=== PATIENT | female | born 1945 | race Two or more races ===

== ENCOUNTER 2022-05-03 14:08 | Inpatient (IN) | payer MEDICARE, MEDICAID ==
[~2022-05-03] VITALS: Ht 144.8 cm; Wt 64.4 kg
[2022-05-03] MEDS: ATORVASTATIN 10 MG TABLET PO SCH (01:30)
[2022-05-03] MEDS ORDERED: IV NS 0.9% 1,000 ML IV ONE (15:00)
--- NOTE | 2022-05-03 15:00 | NUR ---
REceived pt 76 yrs female came from home c/o by family py no voding 3 day awake and confused not fallow command rresting at this time
--- NOTE | 2022-05-03 15:05 | NUR ---
INserted ango catheter G 22 on RT wrist unable to drow blood for lab
--- NOTE | 2022-05-03 15:10 | NUR ---
Inserted FC FR 16 NO DIFFECULTY URINE OUT put 300ml cloudy yellow color UA sent to lab
--- NOTE | 2022-05-03 15:49 | NUR ---
RIGGER HELPER CELIA SON # [phone]
--- NOTE | 2022-05-03 16:10 | NUR ---
TO CT SCAN VIA WNEDY
[2022-05-03 17:05] LABS: BILIRUBIN,URINE NEGATIVE (NEGATIVE); COLOR,URINE YELLOW (YELLOW); LEUKOCYTE ESTERASE ,URINE 2+ (NEGATIVE); NITRITE, URINE NEGATIVE (NEGATIVE); PROTEIN,URINE NEGATIVE (NEGATIVE); UGLUCOSE NEGATIVE (NEGATIVE); UROBILINOGEN,URINE 0.2 EU/dL (0.2)
--- NOTE | 2022-05-03 17:14 | NUR ---
VITAL SIGNS UPDATED.
[2022-05-03] MEDS ORDERED: CEPH500C2 PO (17:59)
[2022-05-03] MEDS ORDERED: IBUP-1955 PO (17:59)
[2022-05-03 18:01] LABS: BASOPHILS # (AUTO) 0.1 K/uL (0.0-0.2); BASOPHILS % (AUTO) 0.5 % (0.0-2.0); EOSINOPHILS % (AUTO) 9.2 % (0.0-6.0); HEMATOCRIT 30 % (33-45); HEMOGLOBIN 9.8 g/dL (11.5-14.8); LYMPHOCYTES # (AUTO) 4.3 K/uL (0.8-4.8); MEAN CORPUSCULAR HGB CONC 32 g/dl (31.0-36.0); MEAN CORPUSCULAR VOLUME 90 fL (82-100); MONOCYTES # (AUTO) 0.9 K/uL (0.1-1.30); NEUTROPHILS # (AUTO) 5.1 K/uL (1.8-8.9); NEUTROPHILS % (AUTO) 44.3 % (43.0-81.0); PLATELET COUNT (AUTO) 294 K/uL (150-450); RED BLOOD CELL COUNT(AUTO) 3.39 MIL/uL (4.0-5.2); WHITE BLOOD COUNT (AUTO) 11.4 K/uL (4.3-11.0)
[2022-05-03 18:05] LABS: BACTERIA,URINE 3+ /HPF (None Seen); RBC,URINE 0-2 /HPF (0-2); SQUAMOUS EPITHELIAL CELL,UR 0-2 /HPF (None Seen); WBC,URINE 21-50 /HPF (0-3)
--- NOTE | 2022-05-03 18:14 | NUR ---
BLOOD drow by lab tach at bed side
[2022-05-03 18:23] LABS: ALANINE AMINOTRANSFERASE 15 U/L (12-78); ALBUMIN 2.5 g/dL (3.4-5.0); ALKALINE PHOSPHATASE 72 U/L (46-116); ASPARTATE AMINOTRANSFERASE 16 U/L (15-37); BILIRUBIN,DIRECT 0.1 mg/dL (0.0-0.2); BILIRUBIN,TOTAL 0.5 mg/dL (0.2-1.0); CALCIUM, SERUM 9.3 mg/dL (8.5-10.1); CARBON DIOXIDE 23 mmol/L (21-32); CHLORIDE 103 mmol/L (98-107); GLUCOSE 95 mg/dL (74-106); LIPASE 163 U/L (73-393); POTASSIUM 4.7 mmol/L (3.5-5.1); SODIUM SERUM 136 mmol/L (136-145); UREA NITROGEN, BLOOD 63 mg/dL (7-18)
[2022-05-03] MEDS ORDERED: MORPHINE SULFATE INJ 2 MG/ML DISP.SYRIN IV ONE (19:00)
[2022-05-03] MEDS ORDERED: CEFTRIAXONE 1 G in IV D5W 50 ML IV ONE (19:00)
[2022-05-03] MEDS ORDERED: ONDANSETRON HCL/PF 4 MG/2 ML VIAL IV ONE (19:00)
[2022-05-03] MEDS ORDERED: CEFTRIAXONE 1GM BAG (ER ONLY) 50 ML IV ONE (19:05)
[2022-05-03] MEDS ORDERED: ONDANSETRON HCL/PF 4 MG/2 ML VIAL ONE (19:05)
[2022-05-03] MEDS ORDERED: MORPHINE SULFATE INJ 4 MG/ML DISP.SYRIN ONE (19:06)
--- NOTE | 2022-05-03 19:19 | NUR ---
HAND OFF JJ DELACRUZ
--- NOTE | 2022-05-03 19:29 | NUR ---
covid swab collected
[2022-05-03] MEDS ORDERED: ONDANSETRON HCL/PF 4 MG/2 ML VIAL IVP PRN (22:30)
[2022-05-04] MEDS ORDERED: CEFTRIAXONE 1GM BAG (ER ONLY) 50 ML IV ONE (01:17)
[2022-05-04] MEDS ORDERED: ENOXAPARIN SODIUM 30 MG/0.3 ML DISP.SYRIN ONE (01:17)
[2022-05-04] MEDS ORDERED: ATORVASTATIN 10 MG TABLET ONE (01:17)
[2022-05-04] MEDS: ENOXAPARIN SODIUM 30 MG/0.3 ML DISP.SYRIN SQ SCH ×2 (01:36→21:02)
[2022-05-04] MEDS: IV NS 0.9% 1,000 ML IV PRN (01:39)
[2022-05-04 05:44] LABS: BASOPHILS # (AUTO) 0.1 K/uL (0.0-0.2); BASOPHILS % (AUTO) 0.5 % (0.0-2.0); EOSINOPHILS % (AUTO) 11.6 % (0.0-6.0); HEMATOCRIT 30 % (33-45); HEMOGLOBIN 9.7 g/dL (11.5-14.8); LYMPHOCYTES # (AUTO) 3.6 K/uL (0.8-4.8); LYMPHOCYTES % (AUTO) 35.5 % (20.0-44.0); MEAN CORPUSCULAR HGB CONC 32 g/dl (31.0-36.0); MEAN CORPUSCULAR VOLUME 90 fL (82-100); MONOCYTES # (AUTO) 0.7 K/uL (0.1-1.30); MONOCYTES % (AUTO) 7.2 % (2.0-12.0); NEUTROPHILS # (AUTO) 4.5 K/uL (1.8-8.9); NEUTROPHILS % (AUTO) 45.2 % (43.0-81.0); PLATELET COUNT (AUTO) 298 K/uL (150-450); RED BLOOD CELL COUNT(AUTO) 3.36 MIL/uL (4.0-5.2); WHITE BLOOD COUNT (AUTO) 10.1 K/uL (4.3-11.0)
[2022-05-04 05:51] LABS: HDL CHOLESTEROL 48 mg/dL (40-60); LDL 84 mg/dL (0-99); TRIGLYCERIDES 153 mg/dL (30-150)
[2022-05-04 05:55] LABS: CALCIUM, SERUM 9.4 mg/dL (8.5-10.1); CARBON DIOXIDE 26 mmol/L (21-32); CHLORIDE 102 mmol/L (98-107); CREATININE 1.8 mg/dL (0.6-1.3); GLUCOSE 95 mg/dL (74-106); PHOSPHORUS 4.3 mg/dL (2.5-4.9); POTASSIUM 3.9 mmol/L (3.5-5.1); SODIUM SERUM 136 mmol/L (136-145); UREA NITROGEN, BLOOD 64 mg/dL (7-18)
[2022-05-04 06:19] LABS: CHOLESTEROL 155 mg/dL (<200)
[2022-05-04 07:00] VITALS: BP 109/28
--- NOTE | 2022-05-04 07:10 | NUR ---
Received pt from LYNN DELACRUZ PT AWAKE ASLEEPY RUDOLPH WHEN CALL NAME
--- NOTE | 2022-05-04 07:15 | NUR ---
Received from LYNN DELACRUZ PT AWAKE and fallow command respiration spon and eassy
--- NOTE | 2022-05-04 08:00 | NUR ---
HAND OFF DANIA DELACRUZ TO ROOM 311-1 VIA WENDY
--- NOTE | 2022-05-04 09:03 | NUR ---
CRUISE AGENT/MED RECON UNABLE TO UPDATE HOME MEDICATION INFORMATION AT THIS TIME. PER SONCELIA TO CALL KENROY FROM [facility] [phone]. SPOKE WITH KENROY AND WILL FAX INFORMATION LATER. FAX # PROVIDED.
--- NOTE | 2022-05-04 09:10 | NUR ---
RN Acepting Report. Patient arrived to unit safely. All safety precautions taken. Patient speaks Jordanian. Able to confirm name and date of . Patient aware of hospital stay. AOx4. Called son to get some information from him Kg arthur. [phone]. Patient stable, no signs of distress or discomfort. Will continue to monitor through shift.
--- NOTE | 2022-05-04 09:15 | NUR ---
wheeled patient via gurney accompanied by RN and emet in no distress. RN assigned at bedside to assume care.
[2022-05-04 09:30] VITALS: BP 109/28
[2022-05-04] MEDS: ASPIRIN 81 MG TAB.CHEW PO SCH (09:53)
[2022-05-04] MEDS ORDERED: SENN-133 PO (12:48)
[2022-05-04] MEDS ORDERED: IPRA3AMP23 IH (12:48)
[2022-05-04] MEDS ORDERED: LORA2ORA SL (12:48)
[2022-05-04] MEDS ORDERED: ONDA4TAB11 SL (12:48)
[2022-05-04] MEDS ORDERED: PETR113O TP (12:48)
[2022-05-04] MEDS ORDERED: MUPI22OI7 TD (12:48)
[2022-05-04] MEDS ORDERED: ALLA266C2 TP (12:48)
[2022-05-04] MEDS ORDERED: ATOR40TA PO (12:48)
[2022-05-04] MEDS ORDERED: BISA10SU11 RC (12:48)
[2022-05-04] MEDS ORDERED: HYDR-500 PO (12:48)
[2022-05-04] MEDS ORDERED: POTA10TA10 PO (12:48)
[2022-05-04] MEDS ORDERED: ACET650S11 RC (12:48)
[2022-05-04] MEDS ORDERED: ATRO3.5O3 SL (12:48)
[2022-05-04] MEDS ORDERED: MORP20SO SL (12:48)
[2022-05-04] MEDS ORDERED: SODI1TAB66 PO (12:48)
[2022-05-04] MEDS ORDERED: NIFE-34 PO (12:48)
[2022-05-04] MEDS ORDERED: LOSA100T31 PO (12:48)
[2022-05-04] MEDS ORDERED: FURO40TA5 PO (12:48)
[2022-05-04] MEDS ORDERED: LEVO25TA76 PO (12:48)
[2022-05-04] MEDS ORDERED: MEGE40TA5 PO (12:48)
[2022-05-04] MEDS ORDERED: SOTA80TA PO (12:48)
[2022-05-04] MEDS ORDERED: OXYC5TAB3 PO (12:48)
[2022-05-04] MEDS ORDERED: FAMO20TA8 PO (12:48)
[2022-05-04] MEDS ORDERED: DICL100G34 TD (12:48)
[2022-05-04] MEDS ORDERED: APIX5TAB PO (12:48)
[2022-05-04] MEDS ORDERED: HYDR-4077 PO (12:48)
--- NOTE | 2022-05-04 13:39 | NUR ---
WEB SERVICES PROFESSIONAL/MED RECON HOME MEDICATION INFORMATION UPDATED, INFO OBTAINED FROM HOSPICE, PER SON-CELIA REQUESTED. FELISA NAZARIO MADE AWARE TO REVIEW.
[2022-05-04] MEDS: Z GUARD REMEDY 4 OZ OINT TP SCH ×2 (14:00→21:06)
[2022-05-04] MEDS: CEFTRIAXONE 1 G in IV D5W 50 ML IV SCH (17:50)
[2022-05-04] MEDS ORDERED: PERMETHRIN 5% CRM 60 GM TUBE TP ONE (19:00)
--- NOTE | 2022-05-04 19:07 | NUR ---
RN Closing Note Patient AOx3-4, speaks Nicaraguan. Patient with no signs of distress or discomfort. Complains of pain only when moved. Patient remained safe through shift, medications administered as ordered and care provided as needed. Son was able to provide limited medical history. All safety precautions taken, call light and table within reach, bed at lowest position.
[2022-05-04 20:00] VITALS: BP 114/96
--- NOTE | 2022-05-04 21:04 | NUR ---
ANTICOAGULANT H/H 9.7 Plt 298 No active bleeding. Given Lovenox injection, co-signed by Vandana Brito.
--- NOTE | 2022-05-04 21:16 | NUR ---
TREAMENT ELIMITE CREAM Elimite cream applied from head to sole of the feet, leave it on. Will remove cream after 8 to 14 hours as per medication instruction.
[2022-05-04] MEDS: ATORVASTATIN 10 MG TABLET PO SCH (21:29)
--- NOTE | 2022-05-04 21:30 | NUR ---
MEDICATION NON ADMINISTERED Patient confused, spit out medication, unable to educate at this time.
--- NOTE | 2022-05-04 22:09 | NUR ---
AGITATION Patient screaming loud, confused, agitated. Pulled out IV line am shift per report. Notified SYRUP MIXER Arvin with new order Ativan 1mg IV x1.
[2022-05-04] MEDS ORDERED: LORAZEPAM INJ 2 MG/ML VIAL IV ONE (22:30)
--- NOTE | 2022-05-04 22:43 | NUR ---
SEVERE AGITATION Patient screaming loud, agitated behavior uncontrolled. Given IV Ativan, will reassess. Fall precaution maintained.
[2022-05-05] VITALS: BP 136/54
--- NOTE | 2022-05-05 02:59 | NUR ---
WRIST RESTRAINT Patient stopped with screaming behavior, agitation improved slowly with IV Ativan. Restless when awake, attempted to pull out IV line and henry cath. Notified Mangle Tender Arvin with new order Soft wrist restraint. Will monitor skin and circulation while on restraint.
[2022-05-05 04:00] VITALS: BP 130/65
[2022-05-05] MEDS: IV NS 0.9% 1,000 ML IV PRN ×2 (05:37→17:18)
--- NOTE | 2022-05-05 06:23 | NUR ---
END OF SHIFT REPORT Patient in bed, confused, restless at times. Right wrist restraints in place, CSM intact in RUE. V Pacing in the Tele monitor HR 62. IV line right arm intact, IVF infusing. On IV abx. Afebrile throughout shift. Montgomery cath draining to gravity, output 550ml urine clear, yellow. Elimite cream removed/ washed this morning. Turned and repositioned. Wound consult. Will endorse to oncoming RN.
[2022-05-05 07:00] VITALS: BP 104/62
--- NOTE | 2022-05-05 07:00 | NUR ---
BLANKET CUTTING MACHINE OPERATOR OPENING NOTES: RECEIVED PT IN BED ASLEEP, EASILY AROUSED WITH STIMULI. A/O X 1, CONFUSED, NEEDS FREQUENT REORIENTATION. NO SOB OR CARDIAC DISTRESS NOTED. ON TELE MONITOR ATTACHED WITH CURRENT READING : V PACING @63 BPM. IV ACCESS ON RFA GAUGE 22 PATENT, INTACT AND INFUSING IV FLUIDS NS 1L @ 75ML/HR. NOTED WITH RIGHT SOFT WRIST RESTRAIN, PT ABLE TO MOVE HER R HAND FREELY. SAFETY PRECAUTIONS MAINTAINED: BED LOCKED AND IN LOWEST POSITION, BED ALARM ON. SIDE RAILS UP X 3 . CALL LIGHT IN EASY REACH FOR HELP.
[2022-05-05] MEDS ORDERED: ALBUTEROL FS 2.5 MG/3 ML VIAL.NEB NEB PRN (08:30)
[2022-05-05] MEDS ORDERED: HOME MED MISCELLANEOUS XX SCH (08:30)
[2022-05-05] MEDS ORDERED: BISACODYL SUPP (10 MG) 10 MG/SUPP.RECT SUPP.RECT RC PRN (08:30)
[2022-05-05] MEDS ORDERED: hydrOXYzine HCL SYRUP 10 MG/5 ML UDC PO PRN (08:30)
[2022-05-05] MEDS ORDERED: DICLOFENAC TOPICAL 100 GM GEL..GM. TP PRN (08:30)
[2022-05-05] MEDS: ASPIRIN 81 MG TAB.CHEW PO SCH (08:54)
[2022-05-05] MEDS: SENNOSIDES/DOCUSATE SODIUM 1 TAB TABLET PO SCH (09:00)
[2022-05-05] MEDS: hydrALAZINE HCL 50 MG TABLET PO SCH ×2 (09:00→17:00)
[2022-05-05] MEDS: NIFEdipine XL (30MG) 30 MG TAB PO SCH (09:00)
[2022-05-05] MEDS: LOSARTAN POTASSIUM 50 MG TABLET PO SCH (09:00)
[2022-05-05] MEDS ORDERED: hydrOXYzine PAMOATE 25 MG CAPSULE PO PRN (09:00)
[2022-05-05] MEDS: ATORVASTATIN 40 MG TABLET PO SCH (09:00)
[2022-05-05] MEDS: Z GUARD REMEDY 4 OZ OINT TP SCH ×2 (09:01→20:55)
[2022-05-05] MEDS: FAMOTIDINE (20 MG) 20 MG TABLET PO SCH (09:01)
[2022-05-05] MEDS: APIXABAN 5 MG TABLET PO SCH ×2 (09:09→17:20)
[2022-05-05] MEDS: MEGESTROL ACETATE 40 MG TABLET PO SCH (09:14)
--- NOTE | 2022-05-05 09:25 | NUR ---
WOUND CARE CONSULT: PT PRESENTS WITH RASH/SKIN CONDITION WITH MULTIPLE SMALL DRY SCABS WELL SACRAL STAGE 3 PRESSURE ULCER, PRESENT ON ADMISSION. RECOMMENDATIONS MADE FOR SKIN PROTECTION. DISCUSSED WITH NURSING STAFF. MARCOS MCMULLEN NOTED. DR WILSON CALLED FOR SURGICAL CONSULT. IN AGREEMENT WITH PLAN OF CARE. Addendum: 05/05/22 at 5209 by MINOO THOMSON WNDNU Amended: Links added.
[2022-05-05 10:00] LABS: BASOPHILS % (AUTO) 0.4 % (0.0-2.0); EOSINOPHILS % (AUTO) 10.2 % (0.0-6.0); HEMATOCRIT 34 % (33-45); HEMOGLOBIN 10.5 g/dL (11.5-14.8); LYMPHOCYTES # (AUTO) 3.7 K/uL (0.8-4.8); LYMPHOCYTES % (AUTO) 36.5 % (20.0-44.0); MEAN CORPUSCULAR HGB CONC 31 g/dl (31.0-36.0); MEAN CORPUSCULAR VOLUME 94 fL (82-100); NEUTROPHILS # (AUTO) 4.4 K/uL (1.8-8.9); NEUTROPHILS % (AUTO) 42.9 % (43.0-81.0); PLATELET COUNT (AUTO) 274 K/uL (150-450); RED BLOOD CELL COUNT(AUTO) 3.61 MIL/uL (4.0-5.2); WHITE BLOOD COUNT (AUTO) 10.2 K/uL (4.3-11.0)
[2022-05-05] MEDS: SOTALOL HCL 80 MG TABLET PO SCH ×2 (10:00→17:00)
[2022-05-05 10:45] LABS: CALCIUM, SERUM 9.4 mg/dL (8.5-10.1); CARBON DIOXIDE 21 mmol/L (21-32); CHLORIDE 108 mmol/L (98-107); CREATININE 1.6 mg/dL (0.6-1.3); GLUCOSE 77 mg/dL (74-106); POTASSIUM 3.6 mmol/L (3.5-5.1); SODIUM SERUM 142 mmol/L (136-145); UREA NITROGEN, BLOOD 57 mg/dL (7-18)
[2022-05-05 12:00] VITALS: BP 132/82
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
[2022-05-05] MEDS: CEFTRIAXONE 1 G in IV D5W 50 ML IV SCH (17:18)
--- NOTE | 2022-05-05 18:50 | NUR ---
SERVICE ATTENDANT CAFETERIA CLOSING NOTES: RECEIVED PT IN BED ASLEEP, EASILY AROUSED WITH STIMULI. A/O X 1, CONFUSED, NEEDS FREQUENT REORIENTATION. NO SOB OR CARDIAC DISTRESS NOTED. ON TELE MONITOR ATTACHED WITH CURRENT READING : V PACING @70BPM. IV ACCESS ON RFA GAUGE 22 PATENT, INTACT AND INFUSING IV FLUIDS NS 1L @ 75ML/HR. NOTED WITH RIGHT SOFT WRIST RESTRAIN, PT ABLE TO MOVE HER R HAND FREELY. SAFETY PRECAUTIONS MAINTAINED: BED LOCKED AND IN LOWEST POSITION, BED ALARM ON. SIDE RAILS UP X 3 . CALL LIGHT IN EASY REACH FOR HELP. ENDORSED TO NOC SHIFT FOR AICHA.
[2022-05-05 20:01] VITALS: BP 134/41
[2022-05-05] MEDS: THERAHONEY GEL 1.5 OZ TUBE TP SCH (20:53)
[2022-05-05] MEDS: ENOXAPARIN SODIUM 30 MG/0.3 ML DISP.SYRIN SQ SCH (20:58)
--- NOTE | 2022-05-05 20:59 | NUR ---
ANTICOAGULANT H/H . Plt 274 No active bleeding. Given Lovenox injection, co-signed by NUBIA ROY.
--- NOTE | 2022-05-05 22:37 | NUR ---
CONSENT Patient remains confused, A/O x1 to self only. Plan for debridement wound sacral. Called family, spoke with Kg/son consented procedure, witnessed by NUBIA Ng.
[2022-05-05] MEDS ORDERED: LORAZEPAM INJ 2 MG/ML VIAL IV ONE (23:30)
[2022-05-05 23:38] VITALS: BP 147/31
--- NOTE | 2022-05-05 23:56 | NUR ---
AGITATION Patient agitated, confused, able to pulled out lead wires for Tele monitor. Scream loud, unable to educated. Notified GROCERY SPECIALIST Arvin with new orders given. Fall precaution maintained.
--- NOTE | 2022-05-06 02:55 | NUR ---
RESTRAINT RENEWAL Trial released restraints, patient still attempting to remove lines/tube, non compliant with instruction, patient confused. Right wrist restraints renewed. Applied as ordered.
[2022-05-06 04:53] VITALS: BP 130/96
--- NOTE | 2022-05-06 06:15 | NUR ---
END OF SHIFT REPORT Patient in bed, A/O x1 to self only, confused. IV line Right arm intact, IVF infusing. On IV Abx. Afebrile. Restless and agitated at times, Trial off restraints unable. Wound care done, turned and repositioned q 2h. Plan for Debridement sacral wound. Consent in the chart. Fall/skin precaution maintained. Will endorse to oncoming RN.
--- NOTE | 2022-05-06 07:00 | NUR ---
HIP HOP PERFORMERS OPENING NOTES: RECEIVED PT IN BED ASLEEP, EASILY AROUSED WITH STIMULI. A/O X 1, CONFUSED, NEEDS FREQUENT REORIENTATION. NO SOB OR CARDIAC DISTRESS NOTED. ON TELE MONITOR ATTACHED WITH CURRENT READING : V PACING @60 BPM. IV ACCESS ON RFA GAUGE 22 PATENT, INTACT AND INFUSING IV FLUIDS NS 1L @ 75ML/HR. NOTED WITH RIGHT SOFT WRIST RESTRAIN, PT ABLE TO MOVE HER R HAND FREELY. SAFETY PRECAUTIONS MAINTAINED: BED LOCKED AND IN LOWEST POSITION, BED ALARM ON. SIDE RAILS UP X 3 . CALL LIGHT IN EASY REACH FOR HELP.
[2022-05-06] MEDS: IV NS 0.9% 1,000 ML IV PRN ×2 (07:36→18:46)
[2022-05-06] MEDS: LEVOTHYROXINE SODIUM 25 MCG TABLET PO SCH (07:41)
[2022-05-06 08:00] VITALS: BP 168/92
[2022-05-06] MEDS: FAMOTIDINE (20 MG) 20 MG TABLET PO SCH (08:46)
[2022-05-06] MEDS: ATORVASTATIN 40 MG TABLET PO SCH (08:46)
[2022-05-06] MEDS: ASPIRIN 81 MG TAB.CHEW PO SCH (08:46)
[2022-05-06] MEDS: MEGESTROL ACETATE 40 MG TABLET PO SCH (08:46)
[2022-05-06] MEDS: SENNOSIDES/DOCUSATE SODIUM 1 TAB TABLET PO SCH (08:46)
[2022-05-06] MEDS: NIFEdipine XL (30MG) 30 MG TAB PO SCH (08:47)
[2022-05-06] MEDS: hydrALAZINE HCL 50 MG TABLET PO SCH ×2 (08:47→16:37)
[2022-05-06] MEDS: LOSARTAN POTASSIUM 50 MG TABLET PO SCH (08:48)
[2022-05-06] MEDS: APIXABAN 5 MG TABLET PO SCH ×2 (08:49→16:40)
[2022-05-06] MEDS: SOTALOL HCL 80 MG TABLET PO SCH ×2 (08:49→16:38)
[2022-05-06] MEDS: Z GUARD REMEDY 4 OZ OINT TP SCH ×2 (09:20→21:07)
[2022-05-06] MEDS: THERAHONEY GEL 1.5 OZ TUBE TP SCH (09:21)
[2022-05-06 12:00] VITALS: BP 149/82
[2022-05-06] MEDS: ENSURE ENLIVE 237 ML LIQUID (VANILLA) PO SCH ×2 (14:17→16:40)
[2022-05-06 16:00] VITALS: BP 109/71
[2022-05-06] MEDS: CEFTRIAXONE 1 G in IV D5W 50 ML IV SCH (17:21)
--- NOTE | 2022-05-06 19:06 | NUR ---
FIRE PREVENTION CAPTAIN CLOSING NOTES: PT IN BED ASLEEP, EASILY AROUSED WITH STIMULI. A/O X 1, CONFUSED, NEEDS FREQUENT REORIENTATION. NO SOB OR CARDIAC DISTRESS NOTED. ON TELE MONITOR ATTACHED WITH CURRENT READING : V PACING @62BPM. IV ACCESS ON RFA GAUGE 22 PATENT, INTACT AND INFUSING IV FLUIDS NS 1L @ 75ML/HR. NOTED WITH RIGHT SOFT WRIST RESTRAIN, PT ABLE TO MOVE HER R HAND FREELY. SAFETY PRECAUTIONS MAINTAINED: BED LOCKED AND IN LOWEST POSITION, BED ALARM ON. SIDE RAILS UP X 3 . CALL LIGHT IN EASY REACH FOR HELP. ENDORSED TO NOC SHIFT FOR AICHA.
--- NOTE | 2022-05-06 19:40 | NUR ---
RN OPENING NOTE RECEIVED PATIENT IN BED; AWAKE, ALERT AND ORIENTED X 1. CONFUSED. ON ROOM AIR; TOLERATING WELL. BREATHING EVEN AND NONLABORED. NOT IN ANY FORM OF RESPIRATORY DISTRESS. WITH IV ACCESS ON RIGHT UPPER ARM 22g INFUSING WITH NS 1L RUNNING @ 75 ML/HR; FLUSHES WELL. ON TELEMETRY MONITORING WITH READING OF V PACING HR-60 BPM. NEEDS ANTICIPATED. WITH RODRÍGUEZ CATH IN PLACE DRAINING BY GRAVITY TO YELLOW URINE OUTPUT. SAFETY MEASURES IMPLEMENTED: HEAD OF BED ELEVATED, CALL LIGHT AND TABLE WITHIN REACH, SIDE RAILS UP X 3, BED IN LOWEST LOCKED POSITION. WILL CONTINUE PLAN OF CARE.
[2022-05-06 20:00] VITALS: BP 107/44
[2022-05-06] MEDS: ENOXAPARIN SODIUM 30 MG/0.3 ML DISP.SYRIN SQ SCH (21:05)
--- NOTE | 2022-05-06 21:05 | NUR ---
RN NOTE HGB 10.5, HCT 34, PLT 274. NO ACTIVE BLEEDING. LOVENOX 0.3 ML GIVEN SQ ORDERED CO-SIGNED BY NUBIA KANG.
[2022-05-06] MEDS: ACETAMINOPHEN 325 MG TABLET PO PRN (22:32)
[2022-05-07] VITALS: BP 133/45
[2022-05-07 04:00] VITALS: BP 134/46
--- NOTE | 2022-05-07 06:45 | NUR ---
RN CLOSING NOTE PATIENT IN BED; AWAKE, A/O X 1. STABLE ON ROOM AIR. BREATHING EVEN AND UNLABORED. IN NO APPARENT DISTRESS. WITH IV ACCESS ON RIGHT UPPER ARM 22g INFUSING WITH NS 1L RUNNING @ 75 ML/HR; FLUSHES WELL. ON TELEMETRY MONITORING WITH READING OF V PACING HR-63 BPM. ALL NEEDS ATTENDED. WITH RIGHT SOFT WRIST RESTRAINT IN PLACE; SKIN AND CIRCULATION WNL. WITH RODRÍGUEZ CATH IN PLACE DRAINING BY GRAVITY TO YELLOW URINE OUTPUT. SAFETY MEASURES MAINTAINED: HEAD OF BED ELEVATED, CALL LIGHT AND TABLE WITHIN REACH, SIDE RAILS UP X 3, BED IN LOWEST LOCKED POSITION. ENDORSED TO NUBIA MCCLOUD FOR AICHA.
--- NOTE | 2022-05-07 07:30 | NUR ---
RN OPENING NOTE- PATIENT ASLEEP, EASILY AWAKENED, A/O X 1. STABLE ON ROOM AIR.. IN NO APPARENT DISTRESS. WITH IV ACCESS ON RIGHT UPPER ARM 22g INFUSING WITH NS 1L RUNNING @ 75 ML/HR; ON TELEMETRY MONITORING WITH READING OF V PACING HR-70 BPM. ALL NEEDS ATTENDED. WITH RIGHT SOFT WRIST RESTRAINT IN PLACE; SKIN AND CIRCULATION WNL. WITH RODRÍGUEZ CATH IN PLACE DRAINING BY GRAVITY TO YELLOW URINE OUTPUT. SAFETY MEASURES MAINTAINED: HEAD OF BED ELEVATED, CALL LIGHT AND TABLE WITHIN REACH, SIDE RAILS UP X 3, BED IN LOWEST LOCKED POSITION.
[2022-05-07] MEDS: ENSURE ENLIVE 237 ML LIQUID (VANILLA) PO SCH ×3 (07:57→16:34)
[2022-05-07] MEDS: LEVOTHYROXINE SODIUM 25 MCG TABLET PO SCH (07:57)
[2022-05-07] MEDS: SENNOSIDES/DOCUSATE SODIUM 1 TAB TABLET PO SCH (08:41)
[2022-05-07] MEDS: ASPIRIN 81 MG TAB.CHEW PO SCH (08:41)
[2022-05-07] MEDS: hydrALAZINE HCL 50 MG TABLET PO SCH ×2 (08:42→16:33)
[2022-05-07] MEDS: MEGESTROL ACETATE 40 MG TABLET PO SCH (08:42)
[2022-05-07] MEDS: ATORVASTATIN 40 MG TABLET PO SCH (08:42)
[2022-05-07] MEDS: LOSARTAN POTASSIUM 50 MG TABLET PO SCH (08:42)
[2022-05-07] MEDS: FAMOTIDINE (20 MG) 20 MG TABLET PO SCH (08:42)
[2022-05-07] MEDS: NIFEdipine XL (30MG) 30 MG TAB PO SCH (08:42)
[2022-05-07] MEDS: APIXABAN 5 MG TABLET PO SCH ×2 (08:45→16:23)
[2022-05-07] MEDS: SOTALOL HCL 80 MG TABLET PO SCH ×2 (08:45→16:33)
[2022-05-07] MEDS: Z GUARD REMEDY 4 OZ OINT TP SCH ×2 (08:45→20:59)
[2022-05-07] MEDS: THERAHONEY GEL 1.5 OZ TUBE TP SCH (08:45)
[2022-05-07] MEDS: IV NS 0.9% 1,000 ML IV PRN (08:52)
[2022-05-07 09:37] VITALS: BP 150/70
[2022-05-07] MEDS: HYDROCODONE/APAP 5/325MG TABLET PO PRN (16:05)
[2022-05-07 16:12] VITALS: BP 100/68
[2022-05-07] MEDS: CEFTRIAXONE 1 G in IV D5W 50 ML IV SCH (17:28)
--- NOTE | 2022-05-07 18:37 | NUR ---
RN CLOSING NOTE- PATIENT AWAKE CONFUSED, A/O X 1. STABLE ON ROOM AIR.. IN NO APPARENT DISTRESS. WITH IV ACCESS ON RIGHT UPPER ARM 22g INFUSING WITH NS 1L RUNNING @ 75 ML/HR; ALL NEEDS ATTENDED. WITH RIGHT SOFT WRIST RESTRAINT IN PLACE; SKIN AND CIRCULATION WNL. WITH RODRÍGUEZ CATH IN PLACE DRAINING BY GRAVITY TO YELLOW URINE OUTPUT. SAFETY MEASURES MAINTAINED: HEAD OF BED ELEVATED, CALL LIGHT AND TABLE WITHIN REACH, SIDE RAILS UP X 3, BED IN LOWEST LOCKED POSITION.
--- NOTE | 2022-05-07 19:25 | NUR ---
MS RN OPENING NOTE RECEIVED PATIENT IN BED; AWAKE, ALERT AND ORIENTED X 1. CONFUSED. ON ROOM AIR; TOLERATING WELL. BREATHING EVEN AND NONLABORED. NOT IN ANY FORM OF RESPIRATORY DISTRESS. WITH IV ACCESS ON RIGHT UPPER ARM 22g INFUSING WITH NS 1L RUNNING @ 75 ML/HR; FLUSHES WELL. WITH RIGHT SOFT WRIST RESTRAINT IN PLACE; SKIN AND CIRCULATION WNL. NEEDS ANTICIPATED. WITH RODRÍGUEZ CATHETER IN PLACE DRAINING BY GRAVITY TO YELLOW URINE OUTPUT. SAFETY PRECAUTIONS IMPLEMENTED: HEAD OF BED ELEVATED, CALL LIGHT AND TABLE WITHIN REACH, SIDE RAILS UP X 3, BED IN LOWEST LOCKED POSITION. WILL CONTINUE PLAN OF CARE.
[2022-05-07 20:00] VITALS: BP 130/69
[2022-05-07] MEDS: ENOXAPARIN SODIUM 30 MG/0.3 ML DISP.SYRIN SQ SCH (20:39)
[2022-05-08] MEDS: IV NS 0.9% 1,000 ML IV PRN ×2 (05:06→20:49)
--- NOTE | 2022-05-08 06:50 | NUR ---
MS RN CLOSING NOTE PATIENT IN BED; AWAKE, A/O X 1. STABLE ON ROOM AIR. BREATHING EVEN AND UNLABORED. IN NO APPARENT DISTRESS. WITH IV ACCESS ON RIGHT UPPER ARM 22g INFUSING WITH NS 1L RUNNING @ 75 ML/HR; FLUSHED WELL. ALL NEEDS ATTENDED. WITH RIGHT SOFT WRIST RESTRAINT IN PLACE; SKIN AND CIRCULATION WNL. WITH RODRÍGUEZ CATH IN PLACE DRAINING BY GRAVITY TO YELLOW URINE OUTPUT. SAFETY MEASURES MAINTAINED: HOB ELEVATED, CALL LIGHT AND TABLE WITHIN REACH, SIDE RAILS UP X 3, BED IN LOWEST LOCKED POSITION. ENDORSED TO MORNING SHIFT FOR AICHA.
--- NOTE | 2022-05-08 07:44 | NUR ---
MS RN OPENING NOTE RECEIVED PATIENT IN BED; ASLEEP, ALERT AND ORIENTED X 1. CONFUSED. ON ROOM AIR; BREATHING EVEN AND NONLABORED. NO S/S OF ACUTE DISTRESS AT THE MOMENT. IV ACCESS ON RIGHT UPPER ARM 22g INFUSING WITH NS 1L RUNNING @ 75 ML/HR. WITH RIGHT SOFT WRIST RESTRAINT IN PLACE; SKIN AND CIRCULATION WNL. RODRÍGUEZ CATHETER NOTED, DRAINING YELLOW URINE. SAFETY PRECAUTIONS IMPLEMENTED: HEAD OF BED ELEVATED, CALL LIGHT AND TABLE WITHIN REACH, SIDE RAILS UP X 3, BED IN LOWEST LOCKED POSITION; WILL CONTINUE WITH PLAN OF CARE DURING SHIFT.
[2022-05-08 08:00] VITALS: BP 126/39
[2022-05-08] MEDS: SENNOSIDES/DOCUSATE SODIUM 1 TAB TABLET PO SCH (08:40)
[2022-05-08] MEDS: LOSARTAN POTASSIUM 50 MG TABLET PO SCH (08:41)
[2022-05-08] MEDS: MEGESTROL ACETATE 40 MG TABLET PO SCH (08:41)
[2022-05-08] MEDS: APIXABAN 5 MG TABLET PO SCH ×2 (08:41→16:05)
[2022-05-08] MEDS: NIFEdipine XL (30MG) 30 MG TAB PO SCH (08:42)
[2022-05-08] MEDS: ATORVASTATIN 40 MG TABLET PO SCH (08:42)
[2022-05-08] MEDS: ENSURE ENLIVE 237 ML LIQUID (VANILLA) PO SCH ×3 (08:43→16:34)
[2022-05-08] MEDS: hydrALAZINE HCL 50 MG TABLET PO SCH ×2 (08:43→16:07)
[2022-05-08] MEDS: FAMOTIDINE (20 MG) 20 MG TABLET PO SCH (08:43)
[2022-05-08] MEDS: ASPIRIN 81 MG TAB.CHEW PO SCH (08:43)
[2022-05-08] MEDS: LEVOTHYROXINE SODIUM 25 MCG TABLET PO SCH (08:43)
[2022-05-08] MEDS: Z GUARD REMEDY 4 OZ OINT TP SCH ×2 (09:25→20:50)
[2022-05-08] MEDS: THERAHONEY GEL 1.5 OZ TUBE TP SCH (09:26)
[2022-05-08] MEDS: SOTALOL HCL 80 MG TABLET PO SCH ×2 (11:26→16:06)
[2022-05-08 16:00] VITALS: BP 111/37
[2022-05-08] MEDS: ACETAMINOPHEN 325 MG TABLET PO PRN (16:48)
[2022-05-08] MEDS: CEFTRIAXONE 1 G in IV D5W 50 ML IV SCH (16:50)
--- NOTE | 2022-05-08 18:57 | NUR ---
MS RN CLOSING NOTES: PATIENT IN BED; AWAKE. ALERT AND ORIENTED X 1, CONFUSED. ON ROOM AIR; BREATHING EVEN AND NONLABORED. NO S/S OF ACUTE DISTRESS AT THE MOMENT. IV ACCESS ON RIGHT UPPER ARM 22g INFUSING WITH NS 1L RUNNING @ 75 ML/HR. RIGHT SOFT WRIST RESTRAINT REMOVED INTERMITTENTLY DURING SHIFT WITHOUT ISSUES . RODRÍGUEZ CATHETER, DRAINING CLEAR YELLOW URINE, OUTPUT =[id number]. WOUND CARE DONE, KEPT PT CLEAN, DRY AND COMFORTABLE. SAFETY PRECAUTIONS IMPLEMENTED: HEAD OF BED ELEVATED, CALL LIGHT AND TABLE WITHIN REACH, SIDE RAILS UP X 3, BED IN LOWEST LOCKED POSITION; WILL ENDORSE TO PM SHIFT.
--- NOTE | 2022-05-08 19:30 | NUR ---
RECEIVED PATIENT IN BED, AWAKE, ALERT AND ORIENTED X1 WITH CONFUSION. AFEBRILE AND NOT IN ANY FORM OF ACUTE DISTRESS. BREATHING EVEN AND NON LABORED. NO C/O PAIN OR DISCOMFORT. NO SOB/WHEEZING NOTED. WITH IV ACCESS ON R UPPER ARM 22G RUNNING WITH NS AT 75ML/HR. SAFETY MEASURES IN PLACE. KEPT BED IN LOCKED AND IN LOWEST POSITION. SIDE RAILS UP X2. KEPT CALL LIGHT WITHIN EASY REACH.
[2022-05-08 20:00] VITALS: BP 143/53
[2022-05-08] MEDS: ENOXAPARIN SODIUM 30 MG/0.3 ML DISP.SYRIN SQ SCH (20:35)
[2022-05-08] MEDS: HYDROCODONE/APAP 5/325MG TABLET PO PRN (20:37)
--- NOTE | 2022-05-09 06:00 | NUR ---
RN NOTE PATIENT'S CURRENT IV ACCESS ON RIGHT ANTECUBITAL WAS NOTED TO BE INFILTRATED AND PATIENT C/O MILD PAIN ON THE SITE. REMOVED OLD IV ACCESS AND STARTED ANOTHER ONE ON L HAND, TOLERATED WELL.
--- NOTE | 2022-05-09 06:58 | NUR ---
RN CLOSING NOTE PATIENT IN BED, ASLEEP BUT EASY TO AROUSE AND RESPONSIVE. NOTED WITH CONFUSION AT TIMES. AFEBRILE AND NOT IN ANY FORM OF ACUTE DISTRESS. BREATHING EVEN AND NON LABORED. NO C/O PAIN OR DISCOMFORT AT THIS TIME. NO SOB/WHEEZING NOTED. OLD IV ACCESS ON RIGHT UPPER ARM WAS INFILTRATED AND REMOVED. REINSERTED NEW IV LINE IN LEFT HAND 22G RUNNING WITH NS AT 75ML/HR. MEDICATED ORDERED. CONTINUOUS ON IV ATB, MONITORED FOR ANY ADVERSE REACTION. SAFETY MEASURES IN PLACE. KEPT BED IN LOCKED AND IN LOWEST POSITION. SIDE RAILS UP X2. KEPT CALL LIGHT WITHIN EASY REACH. TURNED AND REPOSITIONED EVERY 2 HOURS AND TOLERATED TO PROMOTE PROPER CIRCULATION AND COMFORT. ALL NURSING NEEDS ATTENDED. ENDORSED TO INCOMING SHIFT FOR CONTINUITY OF CARE.
[2022-05-09 08:00] VITALS: BP 141/40
--- NOTE | 2022-05-09 08:03 | NUR ---
N OPENING NOTE PATIENT RECEIVED IN BED, AO X 1, CONFUSED, ABLE TO RESPONDS ALL STIMULI. IN NO ACUTE DISTRESS NOTED. RESPIRATORY EVEN AND UNLABORED IN ROOM AIR. SKIN IS WARM TO TOUCH, KEEP CLEAN/DRY. KEPT ELEVATED HOB FOR ENSURE AIRWAY AND ASPIRATION PRECAUTION, ALSO LOWEST POSITION OF THE BED, S/R UP X 3, BED ALARM IS ON AT ALL THE TIMES. ALL SAFETY PRECAUTION APPLIED. CALL LIGHT WITHIN REACH, WILL CONTINUE TO MONITOR.
[2022-05-09] MEDS: SENNOSIDES/DOCUSATE SODIUM 1 TAB TABLET PO SCH (09:08)
[2022-05-09] MEDS: ASPIRIN 81 MG TAB.CHEW PO SCH (09:08)
[2022-05-09] MEDS: ATORVASTATIN 40 MG TABLET PO SCH (09:09)
[2022-05-09] MEDS: FAMOTIDINE (20 MG) 20 MG TABLET PO SCH (09:09)
[2022-05-09] MEDS: SOTALOL HCL 80 MG TABLET PO SCH ×2 (09:10→17:39)
[2022-05-09] MEDS: MEGESTROL ACETATE 40 MG TABLET PO SCH (09:10)
[2022-05-09] MEDS: hydrALAZINE HCL 50 MG TABLET PO SCH ×2 (09:11→17:39)
[2022-05-09] MEDS: NIFEdipine XL (30MG) 30 MG TAB PO SCH (09:11)
[2022-05-09] MEDS: LOSARTAN POTASSIUM 50 MG TABLET PO SCH (09:12)
[2022-05-09] MEDS: APIXABAN 5 MG TABLET PO SCH ×2 (09:13→17:40)
[2022-05-09] MEDS: LEVOTHYROXINE SODIUM 25 MCG TABLET PO SCH (09:15)
[2022-05-09] MEDS: ENSURE ENLIVE 237 ML LIQUID (VANILLA) PO SCH ×3 (09:16→17:41)
[2022-05-09] MEDS: THERAHONEY GEL 1.5 OZ TUBE TP SCH (09:16)
[2022-05-09] MEDS: Z GUARD REMEDY 4 OZ OINT TP SCH ×2 (09:17→20:55)
[2022-05-09 16:00] VITALS: BP 137/40
[2022-05-09] MEDS: CEFTRIAXONE 1 G in IV D5W 50 ML IV SCH (17:38)
--- NOTE | 2022-05-09 18:00 | NUR ---
RN CLOSING NOTE PATIENT IN BED AND RESTING. IN NO ACUTE DISTRESS OBSERVED. RESPIRATORY EVEN AND UNLOBED IN ROOM AIR. SKIN IS WARM TO TOUCH, KEEP CLEAN/DRY. KEPT ELEVATED HOB FOR ENSURE AIR WAY AND ASPIRATION PRECAUTION, ALSO LOWEST BED POSITION. BED ALARM IS ON AT ALL THE TIMES, ALL SAFETY PRECAUTION APPLIED. CALL LIGHT WITHIN REACH, WILL ENDORSE CONFERENCE PRODUCER.
--- NOTE | 2022-05-09 19:30 | NUR ---
RECEIVED PATIENT IN BED, ALERT AND ORIENTED X1 WITH CONFUSION, WITH AT BEDSIDE. AFEBRILE AND NOT IN ANY FORM OF ACUTE DISTRESS. BREATHING EVEN AND NON LABORED. NO C/O PAIN OR DISCOMFORT AT THIS TIME. NO SOB/WHEEZING NOTED. NOTED WITH IV ACCESS ON R HAND 22G RUNNING WITH NS AT 75ML/HR. SAFETY MEASURES IN PLACE. KEPT BED IN LOCKED AND IN LOWEST POSITION. SIDE RAILS UP X2. KEPT CALL LIGHT WITHIN EASY REACH.
[2022-05-09 20:00] VITALS: BP 138/47
[2022-05-09] MEDS: ENOXAPARIN SODIUM 30 MG/0.3 ML DISP.SYRIN SQ SCH (20:54)
--- NOTE | 2022-05-10 07:00 | NUR ---
MS RN OPENING NOTES: RECEIVED PT IN BED AWAKE, CROATIAN SPEAKING A/O X 1, CONFUSED, NEEDS FREQUENT REORIENTATION. NO SOB OR CARDIAC DISTRESS NOTED. IV ACCESS ON R HAND GAUGE 22 PATENT, INTACT AND INFUSING IV FLUIDS NS 1L @ 75ML/HR. KEPT RESTED AND COMFORTABLE. NOTED WITH SCATTERED GENERALIZED SCABS. SAFETY PRECAUTIONS MAINTAINED: BED LOCKED AND IN LOWEST POSITION, BED ALARM ON. SIDE RAILS UP X 3 . CALL LIGHT IN EASY REACH FOR HELP.
--- NOTE | 2022-05-10 07:07 | NUR ---
RN CLOSING NOTES PATIENT IN BED, ASLEEP BUT EASY TO AROUSE AND RESPONSIVE. AFEBRILE AND NOT IN ANY FORM OF ACUTE DISTRESS. BREATHING EVEN AND NON LABORED. NO C/O PAIN OR DISCOMFORT THROUGHOUT THE SHIFT. NO SOB/WHEEZING NOTED. WITH IV ACCESS ON R HAND 22G RUNNING WITH NS AT 75ML/HR. MEDICATED ORDERED. MAINTAINED ON CONTACT ISOLATION FOR POSSIBLE SCABIES. OFFERED AND ENCOURAGED FLUIDS TOLERATED. TURNED AND REPOSITIONED EVERY 2 HOURS AND TOLERATED TO PROMOTE PROPER CIRCULATION AND COMFORT. SAFETY MEASURES IN PLACE. KEPT BED IN LOCKED AND IN LOWEST POSITION. SIDE RAILS UP X2. KEPT CALL LIGHT WITHIN EASY REACH. CONSTANT VISUAL CHECK DONE TO ENSURE SAFETY. ALL NURSING NEEDS ATTENDED.
[2022-05-10] MEDS: LEVOTHYROXINE SODIUM 25 MCG TABLET PO SCH (07:36)
[2022-05-10 08:00] VITALS: BP 151/56
[2022-05-10] MEDS: ENSURE ENLIVE 237 ML LIQUID (VANILLA) PO SCH ×3 (08:02→17:06)
[2022-05-10] MEDS: FAMOTIDINE (20 MG) 20 MG TABLET PO SCH (08:53)
[2022-05-10] MEDS: NIFEdipine XL (30MG) 30 MG TAB PO SCH (08:53)
[2022-05-10] MEDS: ATORVASTATIN 40 MG TABLET PO SCH (08:54)
[2022-05-10] MEDS: hydrALAZINE HCL 50 MG TABLET PO SCH ×2 (08:54→17:05)
[2022-05-10] MEDS: MEGESTROL ACETATE 40 MG TABLET PO SCH (08:54)
[2022-05-10] MEDS: LOSARTAN POTASSIUM 50 MG TABLET PO SCH (08:54)
[2022-05-10] MEDS: ASPIRIN 81 MG TAB.CHEW PO SCH (08:54)
[2022-05-10] MEDS: SENNOSIDES/DOCUSATE SODIUM 1 TAB TABLET PO SCH (08:54)
[2022-05-10] MEDS: SOTALOL HCL 80 MG TABLET PO SCH ×2 (08:55→17:05)
[2022-05-10] MEDS: APIXABAN 5 MG TABLET PO SCH ×2 (08:56→17:06)
[2022-05-10] MEDS: THERAHONEY GEL 1.5 OZ TUBE TP SCH (09:37)
[2022-05-10] MEDS: Z GUARD REMEDY 4 OZ OINT TP SCH ×2 (09:38→21:47)
[2022-05-10] MEDS: IV NS 0.9% 1,000 ML IV PRN (10:57)
[2022-05-10 16:00] VITALS: BP 150/60
--- NOTE | 2022-05-10 18:00 | NUR ---
RN NOTES: IV ACCESS DISLODGED, REINSERTED IV ACCESS NOT SUCCESSFUL, PT REFUSING AND HARD STICK. INFORMED DR NAZARIO, AND STATED "SURE". ORDERS NOTED AND CARRIED OUT.
--- NOTE | 2022-05-10 18:55 | NUR ---
MS RN CLOSING NOTES: PT IN BED AWAKE . A/O X 1, CONFUSED, NEEDS FREQUENT REORIENTATION. NO SOB OR CARDIAC DISTRESS NOTED. NO IV ACCESS MD MADE AWARE.KEPT RESTED AND COMFORTABLE. SAFETY PRECAUTIONS MAINTAINED: BED LOCKED AND IN LOWEST POSITION, BED ALARM ON. SIDE RAILS UP X 3 . CALL LIGHT IN EASY REACH FOR HELP. ENDORSED TO [facility] SHIFT FOR AICHA.
[2022-05-10 20:00] VITALS: BP 124/62
--- NOTE | 2022-05-10 20:26 | NUR ---
MS RN OPENING NOTES: RECEIVED PATIENT AWAKE IN BED. A/O X 1, CONFUSED, NEEDS FREQUENT REORIENTATION. NO SOB OR CARDIAC DISTRESS NOTED. NO IV ACCESS, MD MADE AWARE. SAFETY PRECAUTIONS MAINTAINED: BED LOCKED AND IN LOWEST POSITION, BED ALARM ON. WILL CONTINUE TO MONITOR.
[2022-05-10] MEDS: ENOXAPARIN SODIUM 30 MG/0.3 ML DISP.SYRIN SQ SCH ×3 (21:00→21:56)
--- NOTE | 2022-05-10 21:54 | NUR ---
PATIENT REFUSED ENOXAPARIN INJECTION. PATIENT IS CONFUSED. EXPLAINED TO HER BENEFITS OF HAVING THE MEDICATION. STILL REFUSED.
--- NOTE | 2022-05-10 21:57 | NUR ---
RN NOTES PATIENT REFUSED LOVENOX. EXPLAIN BENEFITS OF MEDICATION. PATIENT IS CONFUSED. STILL REFUSED. Addendum: 05/11/22 at 0659 by JODY AC RN DUPLICATE ENTRY
--- NOTE | 2022-05-11 07:27 | NUR ---
MS RN OPENING NOTE RECEIVED PT IN BED ASLEEP, EASILY AROUSED. PT A/O X1, CONFUSED. REORIENTED PT NEEDED. ON ROOM AIR, TOLERATING WELL. NO SOB NOTED. NOT IN ANY SIGN OF RESPIRATORY DISTRESS. PT HAS NO IV ACCESS, MD AWARE PER MERCHANDISING PROFESSOR NURSE RR, RN. RODRÍGUEZ CATH IN PLACE AND DRAINING WELL. SAFETY MEASURE IN PLACE: BED IN LOWEST AND LOCKED POSITION, BED RAILS UPX2, BED ALARM ON, AND CALL LIGHT WITHIN REACH. WILL CONTINUE TO MONITOR PT.
--- NOTE | 2022-05-11 07:51 | NUR ---
MS RN CLOSING NOTES: PT IN BED AWAKE . A/O X 1, CONFUSED, NEEDS FREQUENT REORIENTATION. NO SOB OR CARDIAC DISTRESS NOTED. NO IV ACCESS MD MADE AWARE. KEPT RESTED AND COMFORTABLE. SAFETY PRECAUTIONS MAINTAINED: BED LOCKED AND IN LOWEST POSITION, BED ALARM ON. SIDE RAILS UP X 3 . CALL LIGHT IN EASY REACH FOR HELP. ENDORSED TO DAY SHIFT FOR AICHA.
[2022-05-11] MEDS: LEVOTHYROXINE SODIUM 25 MCG TABLET PO SCH (08:00)
[2022-05-11] MEDS: ENSURE ENLIVE 237 ML LIQUID (VANILLA) PO SCH ×3 (08:07→17:00)
[2022-05-11] MEDS: SENNOSIDES/DOCUSATE SODIUM 1 TAB TABLET PO SCH (08:33)
[2022-05-11] MEDS: FAMOTIDINE (20 MG) 20 MG TABLET PO SCH (08:33)
[2022-05-11] MEDS: ASPIRIN 81 MG TAB.CHEW PO SCH (08:33)
[2022-05-11] MEDS: NIFEdipine XL (30MG) 30 MG TAB PO SCH (08:34)
[2022-05-11] MEDS: SOTALOL HCL 80 MG TABLET PO SCH ×2 (08:34→17:30)
[2022-05-11] MEDS: LOSARTAN POTASSIUM 50 MG TABLET PO SCH (08:35)
[2022-05-11] MEDS: ATORVASTATIN 40 MG TABLET PO SCH (08:36)
[2022-05-11] MEDS: hydrALAZINE HCL 50 MG TABLET PO SCH ×2 (08:36→17:30)
[2022-05-11] MEDS: ACETAMINOPHEN 325 MG TABLET PO PRN (08:36)
[2022-05-11] MEDS: MEGESTROL ACETATE 40 MG TABLET PO SCH (08:39)
[2022-05-11] MEDS: APIXABAN 5 MG TABLET PO SCH ×2 (08:42→17:31)
[2022-05-11] MEDS: Z GUARD REMEDY 4 OZ OINT TP SCH ×2 (09:07→21:41)
[2022-05-11] MEDS: THERAHONEY GEL 1.5 OZ TUBE TP SCH (09:07)
--- NOTE | 2022-05-11 18:52 | NUR ---
MS RN CLOSING NOTE PT IN BED ASLEEP, EASILY AROUSED. PT A/O X1, CONFUSED. REORIENTED PT NEEDED. ON ROOM AIR, TOLERATING WELL. NO SOB NOTED. NOT IN ANY SIGN OF RESPIRATORY DISTRESS. PT HAS NO IV ACCESS, MD AWARE. RODRÍGUEZ CATH IN PLACE AND DRAINING WELL. ALL NEEDS ATTENDED. KEPT CLEAN AND COMFORTABLE. SAFETY MEASURE IN PLACE: BED IN LOWEST AND LOCKED POSITION, BED RAILS UPX2, BED ALARM ON, AND CALL LIGHT WITHIN REACH. WILL ENDORSE TO HADOOP INFRASTRUCTURE ARCHITECT NURSE FOR AICHA.
--- NOTE | 2022-05-11 19:45 | NUR ---
MS RN OPENING NOTE RECEIVED PATIENT IN BED; AWAKE, ALERT AND ORIENTED X 1. WITH PERIODS OF CONFUSION. ON ROOM AIR; TOLERATING WELL. BREATHING EVEN AND NONLABORED. NOT IN ANY FORM OF RESPIRATORY DISTRESS. NO S/S OF ANY PAIN OR DISCOMFORT NOTED AT THIS TIME. NO IV ACCESS. WITH RODRÍGUEZ CATHETER IN PLACE DRAINING BY GRAVITY TO YELLOW URINE OUTPUT. NEEDS ANTICIPATED. SAFETY PRECAUTIONS IMPLEMENTED: CALL LIGHT AND TABLE WITHIN REACH, SIDE RAILS UP X 3, BED IN LOWEST LOCKED POSITION. WILL CONTINUE PLAN OF CARE.
[2022-05-11 20:00] VITALS: BP 127/62
[2022-05-11 20:21] VITALS: BP 127/62
[2022-05-11 22:00] VITALS: BP 127/62
[2022-05-12 07:00] VITALS: BP 120/52
--- NOTE | 2022-05-12 07:00 | NUR ---
MS RN CLOSING NOTE PATIENT IN BED; AWAKE, A/O X 1. WITH PERIODS OF CONFUSION. STABLE ON ROOM AIR. BREATHING EVEN AND NONLABORED.IN NO ACUTE DISTRESS. NO S/S OF ANY PAIN OR DISCOMFORT NOTED AT THIS TIME. NO IV ACCESS. WITH RODRÍGUEZ CATHETER IN PLACE DRAINING BY GRAVITY TO YELLOW URINE OUTPUT. NEEDS ANTICIPATED. SAFETY PRECAUTIONS MAINTAINED: CALL LIGHT AND TABLE WITHIN REACH, SIDE RAILS UP X 3, BED IN LOWEST LOCKED POSITION. ENDORSED TO NUBIA KANG FOR AICHA.
--- NOTE | 2022-05-12 07:28 | NUR ---
MS RN OPENING NOTE RECEIVED PT IN BED ASLEEP, EASILY AROUSED. PT A/O X1, CONFUSED. REORIENTED PT NEEDED. ON ROOM AIR, TOLERATING WELL. NO SOB NOTED. NOT IN ANY SIGN OF RESPIRATORY DISTRESS. PT HAS NO IV ACCESS, MD AWARE. RODRÍGUEZ CATH IN PLACE AND DRAINING WELL. SAFETY MEASURE IN PLACE: BED IN LOWEST AND LOCKED POSITION, BED RAILS UPX2, BED ALARM ON, AND CALL LIGHT WITHIN REACH. WILL CONTINUE TO MONITOR PT.
[2022-05-12] MEDS: ENSURE ENLIVE 237 ML LIQUID (VANILLA) PO SCH ×2 (08:24→12:16)
[2022-05-12] MEDS: LEVOTHYROXINE SODIUM 25 MCG TABLET PO SCH (08:24)
[2022-05-12] MEDS ORDERED: SOTA80TA6 PO (08:46)
[2022-05-12] MEDS: MEGESTROL ACETATE 40 MG TABLET PO SCH (09:17)
[2022-05-12] MEDS: ATORVASTATIN 40 MG TABLET PO SCH (09:17)
[2022-05-12] MEDS: FAMOTIDINE (20 MG) 20 MG TABLET PO SCH (09:17)
[2022-05-12] MEDS: SENNOSIDES/DOCUSATE SODIUM 1 TAB TABLET PO SCH (09:17)
[2022-05-12] MEDS: ASPIRIN 81 MG TAB.CHEW PO SCH (09:18)
[2022-05-12] MEDS: Z GUARD REMEDY 4 OZ OINT TP SCH (09:20)
[2022-05-12] MEDS: THERAHONEY GEL 1.5 OZ TUBE TP SCH (09:21)
[2022-05-12] MEDS: APIXABAN 5 MG TABLET PO SCH (09:22)
[2022-05-12] MEDS: LOSARTAN POTASSIUM 50 MG TABLET PO SCH (09:37)
[2022-05-12 09:38] VITALS: BP 122/56
[2022-05-12] MEDS: NIFEdipine XL (30MG) 30 MG TAB PO SCH (09:38)
[2022-05-12] MEDS: hydrALAZINE HCL 50 MG TABLET PO SCH (09:38)
[2022-05-12] MEDS: SOTALOL HCL 80 MG TABLET PO SCH (09:38)
--- NOTE | 2022-05-12 14:55 | NUR ---
SHOP AND ALTERATION TAILOR NOTE PT DISCHARGED TO [facility] IN STABLE CONDITION. PT A/O X1, CONFUSED, REORIENTED PT NEEDED. ON ROOM AIR, TOLERATING WELL WITH SPO2 AT 97%. NO SOB NOTED. NOT IN ANY SIGN OF RESPIRATORY DISTRESS. VITAL SIGNS TAKEN, STABLE, AND RECORDED. PHOTOGRAPHS OF SKIN ISSUES TAKEN AND FILED IN THE CHART. ALL BELONGINGS ACCOUNTED FOR. DISCHARGED INSTRUCTIONS AND HEALTH TEACHINGS EXPLAINED TO PT. REDIRECTION AND REINFORCEMENT NEEDED. PT HAS NO IV ACCESS NOTED. RODRÍGUEZ CATHETER REMOVED, WITH NO ACTIVE BLEEDING IN THE AREA NOTED. REPORT GIVEN EARLIER TO NUBIA COFFEY OF [facility]. NAME BAND REMOVED. PT LEFT THE UNIT AT 1450 VIA GURNEY, PICKED UP BY 2 CHEF GERMAN. MD AND CHARGED NURSE AWARE OF DISCHARGED.
== END 2022-05-12 14:50 | DRG 673 ==
LOC: ER 15:02 → TRANSITION 05-04 00:20 → MED 05-04 07:42 → TELE 05-04 16:08 → MED 05-07 10:46
PROVIDERS: ADMIT Nurse Practitioner Acute Care; ATTEND Internal Medicine
PROC: 0JB70ZZ Excision of Back Subcutaneous Tissue and Fascia, Open Approach (ICD-10-PCS; principal; 2022-05-06)
PROC: 0JB70ZZ Excision of Back Subcutaneous Tissue and Fascia, Open Approach (ICD-10-PCS; 2022-05-12)
DX: N17.0 Acute kidney failure with tubular necrosis (principal); L89.153 Pressure ulcer of sacral region, stage 3; N39.0 Urinary tract infection, site not specified; E44.0 Moderate protein-calorie malnutrition; I69.354 Hemiplegia and hemiparesis following cerebral infarction affecting left non-dominant side; G93.40 Encephalopathy, unspecified; K86.2 Cyst of pancreas; B96.20 Unspecified Escherichia coli [E. coli] as the cause of diseases classified elsewhere; D63.8 Anemia in other chronic diseases classified elsewhere; E03.9 Hypothyroidism, unspecified; E11.22 Type 2 diabetes mellitus with diabetic chronic kidney disease; G89.4 Chronic pain syndrome; E88.09 Other disorders of plasma-protein metabolism, not elsewhere classified; I12.9 Hypertensive chronic kidney disease with stage 1 through stage 4 chronic kidney disease, or unspecified chronic kidney disease; I25.10 Atherosclerotic heart disease of native coronary artery without angina pectoris; I70.0 Atherosclerosis of aorta; N18.9 Chronic kidney disease, unspecified; M24.542 Contracture, left hand; M24.532 Contracture, left wrist; E66.9 Obesity, unspecified; R21 Rash and other nonspecific skin eruption; N20.0 Calculus of kidney; N28.89 Other specified disorders of kidney and ureter
CPT/HCPCS: 36415; 80048-TC; 80061-TC; 80076-TC; 81001; 82962-TC; 83690-TC; 83735-TC; 84100-TC; 85025-TC; 87081-TC; 87086-TC; 87186-TC; 92526; 92611-TC; 97110-TC; 97112-TC; 97530-TC; 97535-TC; A6403; C9803; G0378; J0696; J1650; J2060; J2270; J2405; J7030; J7060; Q0177